=== PATIENT | male | born 1975 | race Caucasian/White ===

== ENCOUNTER 2016-10-23 04:49 | Emergency (ER) | payer MEDICAID ==
[~2016-10-23] VITALS: Ht 188 cm; Wt 122.0 kg
[~2016-10-23 04:49] MED LIST: AMLO5TAB66 PO; ATEN50TA PO; BENZ1TAB7 PO; BUSP30TA8 PO; CLON1TAB4 PO; DULO30CA52 PO; HYDR-4072 PO; LORA10TA7 PO; OMEP20CA10 PO; PRAV40TA3 PO; QUET400T3 PO; TRAM50TA4 PO
--- NOTE | 2016-10-23 04:51 | NUR ---
PROVIDER DR RIVER IN ROOM W/ PT.
--- OUTSIDE RECORDS SUMMARY | 2016-10-23 04:54 | XMS REPORT ---
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 056985578 Problem Hypertension, benign 401.1 Active 34375170 Problem Other chronic pain 338.29 Active 58897544 Problem Post-traumatic stress disorder, chronic F43.12 Active 93122323 Problem Memory loss 780.93 Active 38264645 Problem Hypercholesterolemia 272.2 Active 47420891 ALLERGIES Unknown Allergies SOCIAL HISTORY No smoking Hx information available PLAN OF CARE VITAL SIGNS MEDICATIONS Medication Instructions Dosage Frequency Start Date End Date Duration Status Rozerem 8 MG Orally Once a day 1 tablet at bedtime as needed 24h Jan, 30 days Active RESULTS No Results PROCEDURES No Known procedures IMMUNIZATIONS No Known Immunizations
--- OUTSIDE RECORDS SUMMARY | 2016-10-23 04:54 | XMS REPORT ---
Author Author [facility] Organization Unknown Address Unknown Phone Unavailable Care Team Providers Care Aviation Maintenance Technician Name Role Phone UNASSIGNED DOCTOR , DOCTOR PP [phone] Reason For Visit Reason for Visit from 10/02/2016 9:33 AM:* Pt Stated Reason for Adm : SI with plan to jump from water tower or bridge Reason for Visit from 09/30/2016 10:34 AM:* Pt Stated Reason for Adm : SI with plan to jump from water tower or bridge Reason for Visit from 09/29/2016 11:22 PM:* Pt Stated Reason for Adm : SI with plan to jump from water tower or bridge Chief Complaint UNSPEC DEPRESSION Social History Social History from 10/02/2016 9:33 AM:* Tobacco Use? : Current Everyday Smoker Social History from 09/30/2016 10:34 AM:* Tobacco Use? : Current Everyday Smoker Social History from 09/29/2016 11:22 PM:* Tobacco Use? : Current Everyday Smoker Functional Status Functional Status from 10/02/2016 8:24 AM:* LOC : Alert * Oriented To : Person,Place,Time,Event * Weight Bearing Status : Full * Assist Level : Independent * # Assists : Independent Functional Status from 10/01/2016 8:50 PM:* LOC : Alert * Oriented To : Person,Place,Time,Event * Weight Bearing Status : Full * Assist Level : Independent * # Assists : Independent Functional Status from 10/01/2016 12:00 PM:* LOC : Alert * Oriented To : Person,Place,Time,Event * Weight Bearing Status : Full * Assist Level : Independent * # Assists : Independent Functional Status from 09/30/2016 8:50 PM:* LOC : Alert * Oriented To : Person,Place,Time,Event * Weight Bearing Status : Full * Assist Level : Independent * # Assists : Independent Functional Status from 09/30/2016 11:46 AM:* LOC : Alert * Oriented To : Person,Place,Time,Event * Weight Bearing Status : Full * Assist Level : Independent * # Assists : Independent Functional Status from 09/29/2016 11:22 PM:* LOC : Alert * Oriented To : Person,Place,Time,Event * Weight Bearing Status : Full * Assist Level : Independent * # Assists : Independent Vital Signs Hospital Vital Signs from 10/02/2016 6:18 AM:* Height : 6/2 ft,in * Temperature : 97.4 F * Pulse : 88 * Respirations : 18 * BP : 106/69 Hospital Vital Signs from 10/01/2016 6:20 AM:* Weight : 123.4/ kg * Height : 6/2 ft,in * Temperature : 97.7 F * Pulse : 123 * Respirations : 20 * BP : 149/90 Hospital Vital Signs from 09/30/2016 10:11 AM:* Height : 6/2 ft,in * Temperature : 97.8 F * Pulse : 102 * Respirations : 18 * BP : 140/100 Hospital Vital Signs from 09/30/2016 9:23 AM:* Height : 6/2 ft,in Hospital Vital Signs from 09/30/2016 6:18 AM:* Height : 6/2 ft,in * Temperature : 99.6 F * Pulse : 96 * Respirations : 18 * BP : 125/78 Hospital Vital Signs from 09/29/2016 11:22 PM:* Weight : 122.1/ kg * Height : 6/2 ft,in Hospital Vital Signs from 09/29/2016 8:14 PM:* Weight : 122.1/ kg * Height : 6/2 ft,in * Temperature : 97.3 F * Pulse : 115 * Respirations : 18 * BP : 136/101 Results Chemistry from 09/30/2016 6:25 AMGLUCOSE (FASTING) 94 MG/DL (65-99 MG/DL) CHOLESTEROL 219 MG/DL H (50-199 MG/DL) TRIGLYCERIDES 316 MG/DL H (0-149 MG/DL) HDL CHOLESTEROL 42 MG/DL (40-60 MG/DL) *LDL (CALCULATED) CHOL 114 MG/DL H (0-99 MG/DL) Chemistry from 09/29/2016 8:53 PM*COCAINE NEGATIVE (NEG <150 ) *PCP NEGATIVE (NEG <25 ) *CANNABINOIDS NEGATIVE (NEG <50 ) *BENZODIAZEINE NEGATIVE (NEG <200 ) *METHAMPHETAMINE/AMPHETAMINE NEGATIVE (NEG <500 ) *BARBITURATES NEGATIVE (NEG <200 ) *OPIATES NEGATIVE (NEG <300 ) Chemistry from 09/29/2016 8:15 PMSODIUM 140 MMOL/L (136-145 MMOL/L) POTASSIUM 3.9 MMOL/L (3.5-5.1 MMOL/L) CHLORIDE 104 MMOL/L (98-107 MMOL/L) TCO2 28.8 MMOL/L (21.0-32.0 MMOL/L) *ANION GAP 7.2 MMOL/L L (8.0-16.0 MMOL/L) BUN 11 MG/DL (7-18 MG/DL) CREATININE 1.06 MG/DL (0.70-1.30 MG/DL) *BUN/CREATININE RATIO 10.4 (9.1-17.0 ) GLUCOSE 127 MG/DL H (65-99 MG/DL) *GFR EST NON AFR [place] 87 ML/MIN (Reference Range: not available) *GFR EST AFR AMER >90 ML/MIN (Reference Range: not available) CALCIUM 8.8 MG/DL (8.5-10.1 MG/DL) BILIRUBIN TOTAL 0.50 MG/DL (0.20-1.00 MG/DL) TOTAL PROTEIN 7.5 GM/DL (6.4-8.2 GM/DL) ALBUMIN 3.9 GM/DL (3.4-5.0 GM/DL) *GLOBULIN 3.6 GM/DL H (2.3-3.5 GM/DL) *A/G RATIO 1.1 MG/DL L (1.5-2.2 MG/DL) ALK PHOS 107 U/L (46-116 U/L) ALT (SGPT) 39 U/L (14-59 U/L) AST (SGOT) 34 U/L (15-37 U/L) TSH 1.282 UIU/ML (0.340-4.820 UIU/ML) Hematology from 09/29/2016 8:15 PMWBC 8.2 X10e3/UL (3.6-11.2 X10e3/UL) RBC 5.20 X10e6/UL (4.06-5.63 X10e6/UL) HEMOGLOBIN 14.5 G/DL (12.5-16.3 G/DL) HEMATOCRIT 43.9 % (36.7-47.1 %) *MCV 84.4 FL (80.0-100.0 FL) *MCH 27.9 PG (27.0-33.0 PG) *MCHC 33.0 G/DL (32.0-36.0 G/DL) *RDW 13.5 % (12.3-17.0 %) *RDWSD 40.3 (37.1-47.8 ) PLATELET 173 X10e3/UL (159-386 X10e3/UL) *MPV 9.9 FL (7.4-10.4 FL) Urinalysis from 09/29/2016 8:53 PM*URINE COLOR YELLOW (STRAW/YELL/DK YELL ) *URINE APPEARANCE CLEAR (CLEAR ) URINE PH 5.5 (5.0-8.0 ) URINE SPECIFIC GRAVITY 1.015 (<=1.005->=1.030 ) *URINE GLUCOSE NEGATIVE MG/DL (NEGATIVE MG/DL) *URINE BILIRUBIN NEGATIVE (NEGATIVE ) *URINE KETONES NEGATIVE MG/DL (NEGATIVE MG/DL) *URINE BLOOD NEGATIVE (NEGATIVE ) *URINE PROTEIN NEGATIVE MG/DL (NEGATIVE MG/DL) *URINE UROBILINOGEN 0.2 EU/DL (0.2-1.0 EU/DL) *URINE NITRITES NEGATIVE (NEGATIVE ) *URINE LEUKOCYTES NEGATIVE (NEGATIVE ) Problems Encounter Diagnosis * Chronic Pain Status:Active. * Mood Disorder Status:Active. Encounters Encounter Diagnosis * Chronic Pain Status:Active. * Mood Disorder Status:Active. Plan of Care Follow-up Appointments from 10/02/2016 9:33 AM:* #1 Office appointment: : Davida Shell * #1 Date/Time : 10/06/2016 10:00 AM * Address [address] : [address] [phone] Follow-up Appointments from 10/02/2016 9:30 AM:* #1 Office appointment: : Davida Shell * #1 Date/Time : 10/06/2016 10:00 AM * Address [address] : [address] [phone] Follow-up Appointments from 10/02/2016 9:02 AM:* #1 Office appointment: : Davida Shell * #1 Date/Time : 10/06/2016 10:00 AM * Address # [address] : [address] [phone] Procedures No relevant procedures performed. Immunizations No immunizations administered or ordered. Hospital Course Hospital Discharge Instructions How to care for yourself at home from 10/02/2016 9:33 AM:* Discharge Activity : Activity as tolerated,May Shower * Discharge Diet : As before hospitalization,Diet as tolerated * Call your doctor if: : Fever over 101 F or severe chills,Chest pain or other unexplained symptoms,Tingling or numbness develops,A sudden increase or decrease in weight,You have persistent or worsening symptoms,If you have Heart Failure and you gain 3 pounds within 1 week or your symptoms worsen. (Weigh at home tomorrow morning) Allergies, Adverse Reactions, Alerts This section is medical office representative of the current allergy information, at the time of the CCD generation. In the case of regeneration of the CCD, the allergy information may not reflect the state of known allergies at the time of the CCD' s subject visit. * Neurontin causes Vomiting. * No Latex Allergy. * No IV Contrast Allergy. * No Known Food Allergies. Medication It is the responsibility of the patient or patient medical office representative to confirm the list of medications with either the patient's personal care provider or the patient's follow-up care provider to ensure the patient has an appropriate list of medications to take at home. Discharge medications New medications* gabapentin (NEUROntin) 300 mg Capsule, Ordered By: NITIN PERDOMO, RUPA Directions: 1 capsule oral three times a day for pain * nicotine (polacrilex) (Nicorelief) 2 mg Gum, Ordered By: NITIN PERDOMO, PAC Directions: 1 gum oral daily for SMOKING CESSATION Additional Instructions: DO NOT GIVE IF PATIENT UNDER AGE 18 OR . Changed medications* busPIRone 30 mg Tablet, Ordered By: RUPA NICHOLS Directions: 1 tablet oral twice a day for anxiety * clonazePAM 0.5 mg Tablet, Ordered By: RUPA NICHOLS Directions: 1 tablet oral twice a day for anxiety Additional Instructions: #30 NR written * DULoxetine (Cymbalta) 30 mg capsule,delayed release(DR/EC), Ordered By: NITIN PERDOMO, PAC Directions: 3 capsule oral daily for depression * ibuprofen 400 mg Tablet, Ordered By: NITIN PERDOMO, PAC Directions: 1 tablet oral three times a day PRN pain * omeprazole 20 mg capsule,delayed release(DR/EC), Ordered By: NITIN PERDOMO , PAC Directions: 1 capsule oral twice a day before meals for dyspepsia * pravastatin 40 mg Tablet, Ordered By: RUPA NICHOLS Directions: 1 tablet oral daily at bedtime for hyperlipidemia * QUEtiapine (SEROquel XR) 400 mg Tablet Extended Release 24 hr, Ordered By: RUPA NICHOLS Directions: 1 tablet oral daily before dinner for mood stabilization * traMADol 50 mg Tablet, Ordered By: RUPA NICHOLS Directions: 2 tablet oral three times a day for pain Stopped medications* HYDROcodone-acetaminophen ([place]) 7.5 mg-325 mg Tablet Directions: 1 tablet oral three times a day PRN pain * benztropine 1 mg Tablet Directions: 1 tablet oral twice a day
[2016-10-23 04:55] VITALS: TEMP 97.6; Ht 188 cm; Wt 122.0 kg
--- OUTSIDE RECORDS SUMMARY | 2016-10-23 04:55 | XMS REPORT | Continuity of Care Document ---
Author Author [facility] Organization [facility] Address Unknown Phone Unavailable Allergies Active Description Code Type Severity Reaction Onset Reported/Identified Relationship to Patient Clinical Status Yes No Known Allergies NKMA N/A N/A 05/29/2015 Medications Problems Date Dx Coded Attending Type Code Diagnosis Diagnosed By 06/04/2015 Clyde KUHN, Son Final F17.210 Nicotine dependence, cigarettes, uncomplicated 06/04/2015 Clyde KUHN, Son Final J18.9 Pneumonia, unspecified organism 06/04/2015 Clyde KUHN, Son Final J84.10 Pulmonary fibrosis, unspecified 06/04/2015 Clyde KUHN, Son Final J98.4 Other disorders of lung 06/04/2015 Clyde KUHN, Son Final R05 Cough 06/04/2015 Clyde KUHN, Son Reason R06.00 Dyspnea, unspecified 08/10/2015 Clyde KUHN, Son Reason R06.00 Dyspnea, unspecified 05/13/2016 SAMRA DALY D B02.9 Zoster without complications Procedures Code [place] [address] Bronchoscopy, rigid or flexible, including fluoroscopic guidance, when perf 05/29/2015 37407 OFFICE/OUTPATIENT VISIT SAMRA WARD 05/13/2016 Results Encounters ACCT No. Visit Date/Time Discharge Status Pt. Type Provider Facility Loc./Unit Complaint [id number] 03/28/2015 10:28:00 03/28/2015 23 :59:59 [facility] Outpatient
--- OUTSIDE RECORDS SUMMARY | 2016-10-23 04:56 | XMS REPORT ---
Author Author [facility] Organization Unknown Address Unknown Phone Unavailable Care Team Providers Care Drip Pumper Name Role Phone UNASSIGNED DOCTOR , DOCTOR PP [phone] Reason For Visit Reason for Visit from [...] H (65-99 MG/DL) *GFR EST NON AFR [place] 87 ML/MIN (Reference Range: not available) *GFR [...] * Address # [address] : [address] [phone] Follow-up Appointments from 10/02/2016 9:30 AM:* #1 Office appointment: : Davida Shell * #1 Date/Time : 10/06/2016 10:00 AM * Address [address] : [address] [phone] Follow-up Appointments from 10/02/2016 9:02 AM:* #1 Office appointment: : Davida Shell * #1 Date/Time : 10/06/2016 10:00 AM * Address [address] : [address] [phone] Procedures No relevant procedures performed. Immunizations No [...] Allergies, Adverse Reactions, Alerts This section is escrow representative of the current allergy information, at [...] the responsibility of the patient or patient escrow representative to confirm the list of medications [...] 20 mg capsule,delayed release(DR/EC), Ordered By: NITIN K LEANNE , PAC Directions: 1 capsule oral twice [...] a day for pain Stopped medications* HYDROcodone-acetaminophen ([place]) 7.5 mg-325 mg Tablet Directions: 1 tablet oral three times a day PRN pain * benztropine 1 mg Tablet Directions: 1 tablet oral twice a day
--- OUTSIDE RECORDS SUMMARY | 2016-10-23 04:56 | XMS REPORT | Continuity of Care Document ---
Author Author [facility] Organization [facility] Address Unknown Phone Unavailable Care Team Providers Care Greeter Guest Services Name Role Phone GASTON GARCIA MD Primary Care Physician [phone] Insurance Providers Guarantor Caio Ma Address [address] [place] [address] Email DENIED/NO TO PT PORT Payer [facility] Policy Number [id number] Subscriber's Name FrancescaCaio Gilbert Relationship 18 Self Effective Date 16 Expiration Date 16 Advance Directives Directive Response Recorded Date/Time Advanced Directives Type None 06/17/16 4:30pm Chief Complaint and Reason for Visit Chief Complaint Chest Pain Reason for Visit Tachycardia Chest pain Problems Active Problems Medical Problem Onset Date Status Acute encephalopathy Unknown Resolved Acute respiratory failure with hypoxia Unknown Acute Bipolar 1 disorder Unknown Chronic Chronic pain Unknown Chronic pain due to trauma Unknown Acute Community acquired pneumonia Unknown Acute Dementia Unknown Chronic Depression with anxiety Unknown Chronic Erectile dysfunction Unknown Acute GERD (gastroesophageal reflux disease) Unknown Chronic H/O multiple trauma Unknown Chronic Healthcare-associated pneumonia Unknown Acute Hyperlipidemia Unknown Chronic Hypertension Unknown Chronic Hypoxia Unknown Acute Insomnia Unknown Acute Left against medical advice Unknown Acute Left lower lobe pneumonia Unknown Acute Obesity (BMI 30-39.9) Unknown Chronic Pneumonitis, aspiration Unknown Acute Polypharmacy Unknown Chronic RLS (restless legs syndrome) Unknown Chronic Respiratory insufficiency Unknown Acute Respiratory insufficiency Unknown Acute Right lower lobe pneumonia Unknown Acute Sepsis Unknown Acute Sepsis Unknown Acute Sepsis Unknown Acute Severe hypotension Unknown Resolved Severe sepsis Unknown Acute Shortness of breath Unknown Acute Viral syndrome Unknown Acute Vomiting Unknown Acute Past Problems Medical Problem Onset Date Alcohol intoxication Unknown Altered mental status Unknown Anxiety attack Unknown Back pain Unknown Bronchitis Unknown Cellulitis of right hand Unknown Chest pain Unknown Frontal sinusitis Unknown Muscle tension headache Unknown Polypharmacy Unknown Sleep apnea in adult Unknown Tachycardia Unknown Medications Current Home Medications Medication Dose Units Route Directions Days Qty Instructions Start Date Amlodipine Besylate (Norvasc) 5 Mg Tablet 5 Mg Oral Daily Atenolol 50 Mg Tablet 50 Mg Oral Daily 10/16/14 Benztropine Mesylate 1 Mg Tablet 2 Mg Oral Bedtime 01/15/15 Buspirone Hcl (Buspar) 30 Mg Tablet 30 Mg Oral Twice A Day Clonazepam 1 Mg Tablet 1 Mg Oral Twice A Day as needed for Prn Orders 10/16/14 Duloxetine Hcl 30 Mg Capsule.dr 90 Mg Oral Daily 05/05/16 Hydrocodone/Acetaminophen (Hydrocodon-Acetaminoph 7.5-325) 7.5-325 Tablet 1 Tab Oral Three Times A Day 06/17/16 Loratadine 10 Mg Tablet 10 Mg Oral Daily 03/17/15 Omeprazole 20 Mg Capsule.dr 20 Mg Oral Twice A Day 10/16/14 Pravastatin Sodium 40 Mg Tablet 40 Mg Oral Bedtime 10/16/14 Quetiapine Fumarate (Seroquel Xr) 400 Mg Tab.er.24h 800 Mg Oral Bedtime 01/15/15 Tramadol Hcl 50 Mg Tablet 100 Mg Oral Three Times A Day 11/21/15 Past Home Medications Medication Directions Ordered Status Albuterol Sulfate (Ventolin Hfa 90 Mcg/Actuation) 18 Gm Hfa.aer.ad, 2 Puff Inhalation Every 4 Hours as needed for Cough 01/18/15 Discontinued Amoxicillin/Potassium Clav (Augmentin 875-125 Tablet) 1 Each Tablet, 1 Tab Oral Twice A Day 08/05/15 Discontinued Benzonatate 100 Mg Capsule, 100 Mg Oral Every 4 Hours as needed for Cough Discontinued Ciprofloxacin Hcl 500 Mg Tablet, 1 Tab Oral Every 12 Hours 01/31/15 Discontinued Doxycycline Monohydrate 100 Mg Capsule, 1 Cap Oral Twice Daily With Meals 06/05 Discontinued Duloxetine Hcl 30 Mg Capsule.dr, 3 Tab Oral Daily 10/16/14 Discontinued Guaifenesin (Mucinex) 600 Mg Tablet, 600 Mg Oral Every 12 Hours 01/18/15 Discontinued Hydrocodone/Acetaminophen (Hydrocodon-Acetaminophen 5-325) 1 Each Tablet, 1 Tab Oral Four Times Daily 10/16/14 Discontinued Levofloxacin (Levaquin) 750 Mg Tablet, 1 Tab Oral Daily 01/18/15 Discontinued Ondansetron (Zofran Odt) 4 Mg Tab.rapdis, 4 Mg Oral Q6h/0300,0900,1500,2100 as needed for Nausea 10/16/14 Discontinued Prednisone 20 Mg Tablet, 20 Mg Oral Give With Breakfast 01/31/15 Discontinued Quetiapine Fumarate (Seroquel Xr) 300 Mg Tablet, 1 Tab Oral Daily 10/16/14 Discontinued Ramelteon (Rozerem) 8 Mg Tablet, 1 Tab Oral Bedtime 10/16/14 Discontinued Zolpidem Tartrate (Ambien) 10 Mg Tablet, 10 Mg Oral Bedtime 01/15/15 Discontinued Social History Social History Problem Response Recorded Date/Time Onset Date Status Hx Substance Use No 06/17/2016 4:54pm Not Applicable Not Applicable Hx Alcohol Use Y WEEKLY; BEER 06/17/2016 4:54pm Not Applicable Not Applicable Has the pt used tobacco in the last 12 months No 10/11/2015 8:55am Not Applicable Not Applicable Tobacco Usage smoke 01/20/2015 1:41pm Not Applicable Not Applicable Query Response Start Date Stop Date Smoking Status Current every day smoker Hospital Discharge Instructions No hospital discharge instructions. Plan of Care Discharge Date 06/17/16 6:10pm Disposition 01 DISCHARGED HOME, SELF-CARE Condition at Discharge Improved Instructions/Education Provided Tachycardia Prescriptions See Medication Section Referrals GASTON GARCIA MD Address: [address] [place] [address] [place] [phone] HEMA CHURCH DO Address: [address] [place] [address] [place] [phone] Additional Instructions/Education Be sure to follow up with your primary care provider tomorrow morning. Please return to the ER if you have another episode of such rapid heartbeats. Functional Status No functional status results. Allergies, Adverse Reactions, Alerts Allergen Type Severity Reaction Status Last Updated No Known Drug Allergies Allergy Unknown Active 05/10/16 Immunizations Query Response on File Recorded Date/Time Hx Influenza Vaccination No 10/11/15 8:55am Hx Pneumococcal Vaccination No 10/11/15 8:55am Hx Tetanus, Diptheria, Pertussis NO OPEN AREAS 01/20/15 9:52am Hx Influenza Vaccination No 10/11/15 8:55am Hx Tetanus, Diptheria, Pertussis NO OPEN AREAS 01/20/15 9:52am Influenza Vaccine Hx NOT REC'D 06/17/16 4:54pm Vital Signs Acute Vital Signs Vital Response Date/Time Temperature (Fahrenheit) 98.7 deg F (96.8 - 99.1) 06/17/2016 6:10pm Temperature (Calculated Celsius) 37.87996 degrees C (36.0 - 37.3) 06/17/2016 6:10pm Pulse Rate (adult) 110 bpm (60 - 100) 06/17/2016 6:10pm Respiratory Rate 19 breaths/min (10 - 20) 06/17/2016 6:10pm O2 Sat by Pulse Oximetry 96 % (90 - 100) 06/17/2016 6:10pm Blood Pressure 134/81 mm Hg 06/17/2016 6:10pm Height (Feet) 6 feet 06/17/2016 4:43pm Height (Inches) 2.00 inches 06/17/2016 4:43pm Weight (Kilograms) 116.400 kg 06/17/2016 4:43pm Body Mass Index (BMI) 32.0 06/17/2016 4:43pm Results Laboratory Results Test Name Result Units Flags Reference Collection Date/Time Result Date/ Time Comments Plasma Lactate 1.5 MMOL/L 0.6-2.2 05/05/2016 2:53pm 05/05/2016 3:17pm Procalcitonin 0.21 NG/ML 05/05/2016 2:52pm 05/05/2016 3:34pm PCT </= 0.5 ng/mL - sepsis not likely; PCT >0.5 and </=2 ng/mL - sepsis possible; PCT >2 ng/mL - sepsis likely; PCT >/=10 ng/mL - systemic inflammatory response - sepsis or septic shock highly indicated. Urine Collection Type VOIDED-NOT CC-MIDSTR 05/10/2016 9:09am 2015 9:14am Urine Color YELLOW YELLOW 05/10/2016 9:09am 05/10/2016 9:14am Urine Turbidity CLEAR CLEAR 05/10/2016 9:09am 05/10/2016 9:14am Urine Specific Heth 1.015 1.015-1.025 05/10/2016 9:09am 2015 9:14am Urine pH 6.0 5.0-8.0 05/10/2016 9:09am 05/10/2016 9:14am Urine Leukocyte Esterase NEGATIVE NEGATIVE 05/10/2016 9:092015 9:14am Urine Nitrite NEGATIVE NEGATIVE 05/10/2016 9:0905/10/2016 9:14am Urine Protein NEGATIVE NEGATIVE 05/10/2016 9:0905/10/2016 9:14am Urine Glucose (UA) NEGATIVE NEGATIVE 05/10/2016 9:0905/10/2016 9: 14am Urine Ketones NEGATIVE NEGATIVE 05/10/2016 9:0905/10/2016 9:14am Urine Urobilinogen 0.2 EU/DL NORMAL 05/10/2016 9:0905/10/2016 9: 14am Urine Bilirubin NEGATIVE NEGATIVE 05/10/2016 9:0905/10/2016 9: 14am Urine Blood NEGATIVE NEGATIVE 05/10/2016 9:0905/10/2016 9:14am Urinalysis Comment MICROSCOPIC NOT IND. 05/10/2016 9:092015 9:14am White Blood Count 12.2 T/MM3 H 4.5-11.0 06/17/2016 4:50pm 06/17/2016 5: 11pm Red Blood Count 5.45 M/MM3 4.50-5.90 06/17/2016 4:50pm 06/17/2016 5: 11pm Hemoglobin 15.3 GM/DL 13.5-17.5 06/17/2016 4:50pm 06/17/2016 5:11pm Hematocrit 46.3 % 41-53 06/17/2016 4:50pm 06/17/2016 5:11pm Mean Corpuscular Volume 85.0 UM3 80-100 06/17/2016 4:50pm 06/17/2016 5: 11pm Mean Corpuscular Hemoglobin 28.1 UUG 26-34 06/17/2016 4:50pm 2015 5:11pm Mean Corpuscular Hemoglobin Concent 33.0 GM/DL 31-37 06/17/2016 4:50pm 06/17/2016 5:11pm RDW Standard Deviation 45.5 FL 36.9-50.2 06/17/2016 4:50pm 06/17/2016 5 :11pm Platelet Count 271 T/MM3 130-400 06/17/2016 4:50pm 06/17/2016 5:11pm Mean Platelet Volume 11.5 UM3 9.4-12.4 06/17/2016 4:50pm 06/17/2016 5: 11pm Neutrophils (%) (Auto) 64.1 % 33-66 06/17/2016 4:50pm 06/17/2016 5: 11pm Lymphocytes (%) (Auto) 23.6 % 23-45 06/17/2016 4:50pm 06/17/2016 5: 11pm Monocytes (%) (Auto) 8.0 % 0-9.0 06/17/2016 4:50pm 06/17/2016 5:11pm Eosinophils (%) (Auto) 3.7 % 0-4 06/17/2016 4:50pm 06/17/2016 5:11pm Basophils (%) (Auto) 0.4 % 0-2 06/17/2016 4:50pm 06/17/2016 5:11pm Immature Granulocyte % (Auto) 0.2 % 0.0-0.5 06/17/2016 4:50pm 2015 5:11pm Absolute Neutrophils (auto) 7.8 T/MM3 H 1.8-7.7 06/17/2016 4:50pm 2015 5:11pm Absolute Lymphocytes (auto) 2.9 T/MM3 1-4.8 06/17/2016 4:50pm 2015 5:11pm Absolute Monocytes (auto) 1.0 T/MM3 H 0-0.8 06/17/2016 4:50pm 2015 5:11pm Absolute Eosinophils (auto) 0.5 T/MM3 0-0.5 06/17/2016 4:50pm 2015 5:11pm Absolute Basophils (auto) 0.1 T/MM3 0-0.2 06/17/2016 4:50pm 06/17/2016 5:11pm Absolute Immature Granulocyte (auto 0.02 T/MM3 0.00-0.03 06/17/2016 4: 50pm 06/17/2016 5:11pm Prothromb Time International Ratio 0.99 0.76-1.04 06/17/2016 4:50pm 06/17/2016 5:12pm THERAPUTIC RANGE=2.00-3.00 FOR ANTI-THROMBOSIS THERAPUTIC RANGE=2.50-3.50 FOR IMPLANTED VALVE Icterus Index < 2 0-7 06/17/2016 4:50pm 06/17/2016 5:18pm Chemistry Specimen Hemolysis < 15 0-25 06/17/2016 4:50pm 06/17/2016 5 :18pm 0-25: Specimen Exhibited No Hemolysis. Turbidity < 20 0-20 06/17/2016 4:50pm 06/17/2016 5:18pm Sodium Level 142 MEQ/L 134-144 06/17/2016 4:50pm 06/17/2016 5:18pm Potassium Level 4.3 MEQ/L 3.6-5 06/17/2016 4:50pm 06/17/2016 5:18pm Chloride Level 105 MEQ/L 98-107 06/17/2016 4:50pm 06/17/2016 5:18pm Carbon Dioxide Level 23 MEQ/L 22-30 06/17/2016 4:50pm 06/17/2016 5: 18pm Anion Gap 14 MEQ/L 5-15 06/17/2016 4:50pm 06/17/2016 5:18pm Blood Urea Nitrogen 14.0 MG/DL 9-06/17/2016 4:50pm 06/17/2016 5: 18pm Creatinine 0.9 MG/DL 0.8-1.5 06/17/2016 4:50pm 06/17/2016 5:18pm BUN/Creatinine Ratio 16 RATIO 6-06/17/2016 4:50pm 06/17/2016 5:18pm Glomerular Filtration Rate Calc 93 06/17/2016 4:50pm 06/17/2016 5: 18pm Glucose Level 112 MG/DL H 75-110 06/17/2016 4:50pm 06/17/2016 5:18pm Calculated Osmolality 275 MOSM/KG 261-280 06/17/2016 4:50pm 06/17/2016 5:18pm Calcium Level 9.8 MG/DL 8.4-10.2 06/17/2016 4:50pm 06/17/2016 5:18pm Total Bilirubin 0.50 MG/DL 0.20-1.30 06/17/2016 4:50pm 06/17/2016 5: 18pm Alkaline Phosphatase 98 U/L 38-126 06/17/2016 4:50pm 06/17/2016 5:18pm Total Protein 8.4 G/DL H 6.3-8.2 06/17/2016 4:50pm 06/17/2016 5:18pm Albumin 4.9 G/DL 3.5-5.0 06/17/2016 4:50pm 06/17/2016 5:18pm Globulin 3.5 G/DL 2.4-3.6 06/17/2016 4:50pm 06/17/2016 5:18pm Albumin/Globulin Ratio 1.4 RATIO 1.1-2.2 06/17/2016 4:50pm 06/17/2016 5 :18pm Aspartate Amino Transf (AST/SGOT) 32 U/L 17-59 06/17/2016 4:50pm 2015 5:18pm Alanine Aminotransferase (ALT/SGPT) 42 U/L 21-72 06/17/2016 4:50pm 5:18pm Troponin I < 0.012 ng/ml 0-0.12 06/17/2016 4:50pm 06/17/2016 5:29pm Troponin values with a difference of 55% increase from orginal troponin value represent a true biological DELTA value. (%increase Calc=Orginal Troponin value, divided by subsequent Troponin value, multiplied by 100) [id number]-Type Natriuretic Peptide 17 PG/ML 0-175 06/17/2016 4:50pm 5:29pm Rule in cut points: <50 years old=450; 50-75 years old=900; >75 years old=1800; When utilizing ProBNP rule-in cut points, adjustment for impaired renal function is typically not required. Thyroid Stimulating Hormone (TSH) 0.80 MIU/L 0.47-4.68 06/17/2016 4: 50pm 06/17/2016 5:48pm Procedures Procedure Status Date Provider(s) CHEST X-RAY 2VW FRONTAL&LATL Completed 03/19/16 THER/PROPH/DIAG INJ SC/IM Completed 03/19/16 THER/PROPH/DIAG INJ SC/IM Completed 03/19/16 EMERGENCY DEPT VISIT Completed 03/19/16 002157"INJECTION, CEFTRIAXONE SODIUM, PER 250 MG" Completed 03/19/16 649905"INJECTION, HYDROMORPHONE, UP TO 4 MG" Completed 03/19/16 595192"INJECTION, KETOROLAC TROMETHAMINE, PER 15 MG" Completed 03/19/16 PREDNISONE, 10 MG TAB Completed 03/19/16"AZITHROMYCIN DIHYDRATE, ORAL, CAPSULES/POWDER, 1 GRAM Completed ROUTINE VENIPUNCTURE Completed 05/05/16 METABOLIC PANEL TOTAL CA Completed 05/05/16 ASSAY OF LACTIC ACID Completed 05/05/16 PROCALCITONIN (PCT) Completed 05/05/16 COMPLETE CBC W/AUTO DIFF WBC Completed 05/05/16 EMERGENCY DEPT VISIT Completed 05/05/16 ROUTINE VENIPUNCTURE Completed 05/10/16 X-RAY EXAM OF ABDOMEN Completed 05/10/16 METABOLIC PANEL TOTAL CA Completed 05/10/16 URINALYSIS AUTO W/O SCOPE Completed 05/10/16 COMPLETE CBC W/AUTO DIFF WBC Completed 05/10/16 THER/PROPH/DIAG INJ SC/IM Completed 05/10/16 THER/PROPH/DIAG INJ SC/IM Completed 05/10/16 EMERGENCY DEPT VISIT Completed 05/10/16 178274"INJECTION, DEXAMETHASONE SODIUM PHOSPHATE, 1MG" Completed 05/10/16"INJECTION, KETOROLAC TROMETHAMINE, PER 15 MG" Completed 05/10/16 Encounters Encounter Location Arrival/Admit Date Discharge/Depart Date Attending Provider Departed Emergency Room [facility] 06/17/16 4:26pm 06/17/16 6: 10pm ZOEY COHEN MD Departed Emergency Room [facility] 05/10/16 8:28am 05/10/16 11: 12am ZOEY COHEN MD Departed Emergency Room [facility] 05/05/16 1:55pm 05/05/16 4: 12pm ZOEY COHEN MD Departed Emergency Room [facility] 03/19/16 4:49pm 03/19/16 8: 35pm HEMA RIVER MD Recent Diagnosis
--- OUTSIDE RECORDS SUMMARY | 2016-10-23 04:57 | XMS REPORT | Continuity of Care Document ---
Author Author [facility] Organization [facility] Address [address] [place] [address] ;ext= Care Team Providers Care Group Billing Coordinator Name Role Phone Monico NORTON Admitting Physician Unavailable Monico NORTON Attending Physician Unavailable Hospital Admission Diagnosis * No data in the System Social History Element Description Code Description Smoking Status Code System Start Date End Date Smoking Status 718155094 Current every day smoker SNOMED-CT Problems Code Code System Problem Name Start Date End Date Status 81541355 SNOMED-CT Depressive disorder Unknown Active 634906771 SNOMED-CT Bipolar I disorder Unknown Active 00308106 SNOMED-CT Posttraumatic stress disorder Unknown Active 91068461 SNOMED-CT Dementia Unknown Active Medications RxNorm Medication Dose Route Instructions Indications Start Date End Date Status 19721120 Amlodipine 5 MG Oral Tablet 5 milligram Oral orally every day Active 19730120 Atenolol 50 MG Oral Tablet 50 milligram Oral orally once Active 184157 benztropine mesylate 1 MG Oral Tablet 1 milligram Oral orally 2 times per day Active Ibuprofen 400 MG Oral Tablet 400 milligram Oral orally 3 times per day Active 01324 Loratadine 10 milligram Oral orally every day Active 7646 Omeprazole 20 milligram Oral orally 2 times per day (swallow whole; do not crush/chew/cut OR may open and sprinkle contents over spoonful of applesauce; swallow all immediately/do not chew pellets;) Active 692493 Pravastatin Sodium 40 MG Oral Tablet 40 milligram Oral orally every day at bedtime Active 43518 quetiapine 800 milligrams Oral orally every day at bedtime Active 868168 tramadol hydrochloride 50 MG Oral Tablet 100 milligram Oral orally every 8 hours Active 167928 tramadol hydrochloride 50 MG Oral Tablet 100 milligram Oral orally tid Active Allergies Code Code System Allergy Substance Type Reaction Severity Start Date End Date Status 340399 RXNorm Neurontin Drug allergy bad dreams Unknown 09/27/2016 Active Results * No data in the system Vital Signs Vitals Value Date Body Temperature 97.3 F 09/27/2016 Respiratory Rate 16 09/27/2016 O2% BldC Oximetry 92 09/27/2016 BP Systolic 143 mmHg 09/27/2016 BP Diastolic 77 mmHg 09/27/2016 Height 74 in 09/27/2016 Weight Measured 264 lbs 09/27/2016 BSA (Body Surface Area) 2.95440 09/27/2016 BMI (Body Mass Index) 34.2 09/27/2016 Plan of Care * No data in the system Procedures * No data in the system Encounters * No data in the system Immunizations * No data in the system Functional Status * No data in the system Hospital Discharge Instructions * No data in the system
[2016-10-23] MEDS ORDERED: DEXAMETHASONE 4mg/ml - 1ml INJECTION IM ONE (05:00)
[2016-10-23] MEDS ORDERED: HYDROMORPHONE 2mg/ml INJECTION IM ONE (05:00)
[2016-10-23] MEDS ORDERED: KETOROLAC 60mg/2ml INJECTION IM ONE (05:00)
--- NOTE | 2016-10-23 05:08 | ERPDOC ---
Departure Disposition Decision Date: October 23, 2016 Disposition Decision Time: 05:07 Disposition: 01 DISCHARGED HOME, SELF-CARE Impression Impression Impression: Primary Impression: Peroneal tendinitis of right lower leg Severity: Moderate Condition: Improved Seen By: Physician only Referrals: HEMA CHURCH DO (Family) CRISTEL WEISS MD Patient Instructions: Tendinitis (ED) Problems/Meds/Labs Reviewed?: Yes Medications reviewed and manag: Yes Additional Instructions: Take ibuprofen 800 mg 3 times daily in addition to your routine pain medications Ice the affected area, keep it elevated as much as possible, but maintaining her normal walking and activities Call Dr. Church's office recheck sometime in the next 2-7 days If you're unable to be seen by Dr. Church, call Dr. Cristel Weiss office for sports medicine/orthopedic consultation Follow up care ordered?: Yes Mental Status: Alert HPI - Lower Extremity General Chief Complaint: Lower Extremity Pain Stated Complaint: RIGHT KNEE PAIN Time Seen by Provider: 04:51 Source: patient Exam Limitations: no limitations HPI - Lower Extremity Initial Comments Two days of lateral posterior right calf/ankle pain. No injury, no swelling or bruising. Occurred At: home Onset/Timing: Rapid Severity: moderate Pain/Injury Location: right ankle 1 - Can right posterior ankle pain/tenderness Method of Injury: unknown Quality: burning, sharpness Allergies: Coded Allergies: No Known Drug Allergies (Verified Allergy, Unknown, 05/10/16) Past History Patient Surgical History Lap Azul T/A Multiple ortho procedures due to trauma Past Medical History Hx Echocardiogram: No Respiratory: other, pneumonia GI: GERD Musculoskeletal: back pain, other Infectious: other Psychological: OD, anxiety, bipolar, depression, other Surgical History General: gallbladder, tonsils Joint: other Family History Family PMH: FOUND: cancer, hypertension Vaccines Hx Influenza Vaccination: No Hx Pneumococcal Vaccination: No Social History Smoking Status: Current every day smoker Does patient use chewing tobac: No Second Hand Exposure: Yes Substance Use Type: does not use Alcohol Intake: occasionally Sexuality: female partner Review of Systems Constitutional Constitutional: DENIES: appetite decrease, appetite increase, chills, dizziness , fever, weakness ENMT Ears: DENIES: pain Hearing: DENIES: hearing loss, tinnitus Balance: DENIES: vertigo Mouth/Throat: DENIES: change in swallowing, change in voice, hoarsness, painful swallowing, sore throat Cardiovascular Cardiac: DENIES: chest pain, dyspnea on exertion Rhythm/Rate: DENIES: irregular beat, palpitations, tachycardia Vascular: DENIES: pedal edema Pulmonary Respiratory: DENIES: cough, dyspnea, pleuritic chest pain GI Upper Abdomen: DENIES: dysphagia, heartburn/indigestion, nausea, pain, vomiting Lower Abdomen: DENIES: blood in stool, constipation, diarrhea, pain General: DENIES: burning, dysuria, frequency, pain, urgency Musculoskeletal General: pain, tenderness, DENIES: atrophy of muscles, cramps, joint pain, joint swelling, weakness Integumentary Skin: DENIES: rash, sores Neurological General: DENIES: headache, numbness, tingling, vertigo, weakness Psychiatric Psychiatric: DENIES: anxiety, depression, nervousness Physical Exam General General Nourishment: well nourished, well developed, appears stated age, no acute distress General Body Habitus: well groomed Vitals and Pain Weight: Kilograms: Height (feet): 6 Height (inches): 2.00 Triage Pain Scale: RN VS reviewed by Provider: Yes Normal Exams: Head: Normocephalic w/o trauma Eyes: Pupils are PERRLA w/ EOMI, No scleral icterus, irritation, or foreign bodies noted ENMT: No facial trauma, nasal exudates, pharyngeal erythema, or exudates are noted Neck: Full range of motion, without adenopathy, JVD, bruits or thyromegaly Chest/Resp: Clear all cerda, with good airflow, and symmetry bilaterally CV: Regular rate and rhythm, without murmur or gallop, Pulses 2+ all extremities, capillary refill, <2 seconds all ext., no pedal edema noted Abdomen: Bowel sounds positive, soft, non-tender, non-distended, no hepatosplenomegaly, masses or bruits noted Lymphatic: No lymphadenopathy, or lymphedema noted Integumentary: No rashes, hives, or bruising noted, hair and nails, without abnormality Neurologic: Patient is alert, and oriented, cranial nerves, motor/sensory/ cerebellar, exams w/o gross deficits, to observation Psychiatric: Patient exhibits, appropriate attention, emotion and affect Progress Results/Orders Orders Procedure Category Date Status Time Ketorolac (Toradol) PHA 10/23/16 Complete 05:00 Dexamethasone Inj PHA 10/23/16 Complete (Decadron) 05:00 Hydromorphone PHA 10/23/16 Complete (Dilaudid) 05:00 Medications Current ED Medications Ketorolac Tromethamine (Toradol) 60 mg O ONCE IM ; Start 10/23/16 at 05:00; Stop 10/23/16 at 05:02; Status DC Dexamethasone Sodium Phosphate (Decadron) 8 mg O ONCE IM ; Start 10/23/16 at 05: 00; Stop 10/23/16 at 05:02; Status DC Hydromorphone HCl (Dilaudid) 1 mg O ONCE IM ; Start 10/23/16 at 05:00; Stop 10/23 at 05:02; Status DC Progress Progress Patient appears to have peroneal tendinitis Given dexamethasone 8 mg IM, Toradol 60 mg IM, and one dose of Dilaudid 1 mg IM HEMA RIVER MD October 23, 2016 05:08
--- OUTSIDE RECORDS SUMMARY | 2016-10-23 05:17 | XMS REPORT ---
Author Author [facility] Organization Unknown Address Unknown Phone Unavailable Care Team Providers Care Crew Supervisor Name Role Phone UNASSIGNED DOCTOR , DOCTOR PP [phone] Reason For Visit Reason for Visit from [...] H (65-99 MG/DL) *GFR EST NON AFR EMIRATI 87 ML/MIN (Reference Range: not available) *GFR [...] * Address # [address] : [address] [phone] Follow-up Appointments from 10/02/2016 9:30 AM:* #1 Office appointment: : Davida Shell * #1 Date/Time : 10/06/2016 10:00 AM * Address # [address] : [address] [phone] Follow-up Appointments from 10/02/2016 9:02 AM:* #1 Office appointment: : Davida Shell * #1 Date/Time : 10/06/2016 10:00 AM * Address # [address] : [address] [phone] Procedures No relevant procedures performed. Immunizations No [...] Allergies, Adverse Reactions, Alerts This section is delivery representative of the current allergy information, at [...] the responsibility of the patient or patient delivery representative to confirm the list of medications [...] a day for pain Stopped medications* HYDROcodone-acetaminophen ([facility]) 7.5 mg-325 mg Tablet Directions: 1 tablet oral three times a day PRN pain * benztropine 1 mg Tablet Directions: 1 tablet oral twice a day
--- OUTSIDE RECORDS SUMMARY | 2016-10-23 05:17 | XMS REPORT | Continuity of Care Document ---
Author Author [facility] Organization [facility] Address Unknown Phone Unavailable Allergies Active Description Code Type Severity Reaction Onset Reported/Identified Relationship to Patient Clinical Status Yes No Known Allergies NKMA N/A N/A 05/29/2015 Medications Problems Date Dx Coded Attending Type Code Diagnosis Diagnosed By 06/04/2015 Clyde KHUN, Son Final F17.210 Nicotine dependence, cigarettes, uncomplicated [...] Procedures Code [place] [address] Bronchoscopy, rigid or flexible, including fluoroscopic guidance, when perf 05/29/2015 71414 OFFICE/OUTPATIENT VISIT SAMRA WARD 05/13/2016 Results Encounters ACCT No. Visit Date/Time Discharge Status Pt. Type Provider Facility Loc./Unit Complaint [id number] 03/28/2015 10:28:00 03/28/2015 23 :59:59 CLS Outpatient
--- OUTSIDE RECORDS SUMMARY | 2016-10-23 05:18 | XMS REPORT ---
Author Author [facility] Organization Unknown Address Unknown Phone Unavailable Care Team Providers Care Communication Equipment Mechanic Name Role Phone UNASSIGNED DOCTOR , DOCTOR PP [phone] Reason For Visit Reason for Visit from [...] H (65-99 MG/DL) *GFR EST NON AFR [place] 87 ML/MIN (Reference Range: not available) *GFR [...] * Address # [address] : [place] [address] [phone] Follow-up Appointments from 10/02/2016 9:30 AM:* #1 Office appointment: : Davida Shell * #1 Date/Time : 10/06/2016 10:00 AM * Address # [address] : [place] [address] [phone] Follow-up Appointments from 10/02/2016 9:02 AM:* #1 Office appointment: : Davida Shell * #1 Date/Time : 10/06/2016 10:00 AM * Address # [address] : [place] [place] [phone] Procedures No relevant procedures performed. Immunizations No [...] Allergies, Adverse Reactions, Alerts This section is patient portal representative of the current allergy information, at [...] the responsibility of the patient or patient patient portal representative to confirm the list of medications [...] a day for pain Stopped medications* HYDROcodone-acetaminophen ([place]) 7.5 mg-325 mg Tablet Directions: 1 tablet oral three times a day PRN pain * benztropine 1 mg Tablet Directions: 1 tablet oral twice a day
[2016-10-23 05:52] VITALS: BP 122/56; PULSE 75; RESP 16; O2SAT 92
--- NOTE | 2016-10-23 05:52 | NUR ---
DISCHARGE PT GIVEN DISCHARGE INSTRUCTIONS FOR CONT CARE TENDONITIS, PT VERVBALIZED UNDERSTANDING OF CONTENT AND SIGNED FORM, PT LEFT ER AMBULATORY, ALERT, VS CHARTED IN NO ACUTE DISTRESS W/ CONDITION IMPROVED 0/10 PAIN.
== END 2016-10-23 05:52 | disposition home or self-care (01) ==
LOC: ED 04:49
DX: M76.71 Peroneal tendinitis, right leg (principal)
CPT/HCPCS: 96372; 99283; J1100; J1170; J1885

== ENCOUNTER 2016-10-23 17:53 | Emergency (ER) | payer MEDICAID ==
[~2016-10-23] VITALS: Ht 188 cm; Wt 122.0 kg
[2016-10-23 17:55] VITALS: Ht 188 cm; Wt 122.0 kg
--- OUTSIDE RECORDS SUMMARY | 2016-10-23 17:58 | XMS REPORT ---
Author Author [facility] Organization Unknown Address Unknown Phone Unavailable Care Team Providers Care Document Photographer Name Role Phone UNASSIGNED DOCTOR , DOCTOR PP [phone] Reason For Visit Reason for Visit from [...] H (65-99 MG/DL) *GFR EST NON AFR PRYDEINIG 87 ML/MIN (Reference Range: not available) *GFR [...] * Address # [address] : [place] [phone] Follow-up Appointments from 10/02/2016 9:30 AM:* #1 Office appointment: : Davida Shell * #1 Date/Time : 10/06/2016 10:00 AM * Address # [address] : [place] [phone] Follow-up Appointments from 10/02/2016 9:02 AM:* #1 Office appointment: : Davida Shell * #1 Date/Time : 10/06/2016 10:00 AM * Address # [address] : [place] [phone] Procedures No relevant procedures performed. Immunizations No [...] Allergies, Adverse Reactions, Alerts This section is livestock sales representative of the current allergy information, at [...] the responsibility of the patient or patient livestock sales representative to confirm the list of medications [...] a day for pain Stopped medications* HYDROcodone-acetaminophen ([place]) 7.5 mg-325 mg Tablet Directions: 1 tablet oral three times a day PRN pain * benztropine 1 mg Tablet Directions: 1 tablet oral twice a day
--- OUTSIDE RECORDS SUMMARY | 2016-10-23 17:59 | XMS REPORT ---
Author Author [facility] Organization Unknown Address Unknown Phone Unavailable Care Team Providers Care Receiving Weigher Name Role Phone UNASSIGNED DOCTOR , DOCTOR PP [phone] Reason For Visit Reason for Visit from [...] H (65-99 MG/DL) *GFR EST NON AFR [place]ELANDIC 87 ML/MIN (Reference Range: not available) *GFR [...] * Address # [address] : [place] [phone] Follow-up Appointments from 10/02/2016 9:30 AM:* #1 Office appointment: : Davida Shell * #1 Date/Time : 10/06/2016 10:00 AM * Address # [address] : [place] [phone] Follow-up Appointments from 10/02/2016 9:02 AM:* #1 Office appointment: : Davida Shell * #1 Date/Time : 10/06/2016 10:00 AM * Address # 1 : [place] [phone] Procedures No relevant procedures performed. Immunizations No [...] Allergies, Adverse Reactions, Alerts This section is printing supplies sales representative of the current allergy information, [...] the responsibility of the patient or patient printing supplies sales representative to confirm the list of [...] a day for pain Stopped medications* HYDROcodone-acetaminophen ([place]) 7.5 mg-325 mg Tablet Directions: 1 tablet oral three times a day PRN pain * benztropine 1 mg Tablet Directions: 1 tablet oral twice a day
--- OUTSIDE RECORDS SUMMARY | 2016-10-23 17:59 | XMS REPORT | Continuity of Care Document ---
[...] Procedures Code [place] [address] Bronchoscopy, rigid or flexible, including fluoroscopic guidance, when perf 05/29/2015 39496 OFFICE/OUTPATIENT VISIT SAMRA WARD 05/13/2016 Results Encounters ACCT No. Visit Date/Time Discharge Status Pt. Type Provider Facility Loc./Unit Complaint [id number] 03/28/2015 10:28:00 03/28/2015 23 :59:59 CLS Outpatient
--- OUTSIDE RECORDS SUMMARY | 2016-10-23 18:00 | XMS REPORT | Continuity of Care Document ---
Author Author [facility] Organization [facility] Address Unknown Phone Unavailable Care Team Providers Care Offset Press Assistant Name Role Phone GASTON GARCIA MD Primary Care Physician [phone] Insurance Providers Guarantor Caio Ma Address [address] [place] [address] Email DENIED/NO TO PT PORT Payer [facility] Policy Number [id number] Subscriber's Name Caio Ma Relationship 18 Self Effective Date 16 Expiration Date 16 Advance Directives Directive Response Recorded Date/Time Advanced Directives Type None 10/23/16 4:55am Chief Complaint and Reason for Visit Chief Complaint Lower Extremity Pain Reason for Visit Peroneal tendinitis of right lower leg Problems Active Problems Medical Problem Onset Date [...] Frontal sinusitis Unknown Muscle tension headache Unknown Peroneal tendinitis of right lower leg Unknown Polypharmacy Unknown Sleep apnea in adult [...] 20 Mg Oral Twice A Day 10/16/14 Quetiapine Fumarate (Seroquel Xr) 400 Mg Tab.er.24h 800 Mg Oral Bedtime 01/15/15 Tramadol Hcl 50 Mg Tablet 100 Mg Oral Three Times A Day 11/21/15 Past Home Medications Medication Directions Ordered Status Acetaminophen/Hydrocodone Bitart ([place] 5-325 Tablet) 1 Each Tablet, 1 Tab Oral Four Times Daily 10/16/14 Discontinued Albuterol Sulfate (Ventolin Hfa 90 Mcg/Actuation) 18 [...] Mg Oral Every 12 Hours 01/18/15 Discontinued Levofloxacin (Levaquin) 750 Mg Tablet, 1 [...] Onset Date Status Hx Substance Use No 10/23/2016 5:03am Not Applicable Not Applicable Hx Alcohol Use N occasional 10/23/2016 5:03am Not Applicable Not Applicable Has the pt used tobacco in the last 12 months No 10/11/2015 8:55am Not Applicable Not Applicable Tobacco Usage smoke 01/20/2015 1:41pm Not Applicable Not Applicable Query Response Start Date Stop Date Smoking Status Current every day smoker Hospital Discharge Instructions No hospital discharge instructions. Plan of Care Discharge Date 10/23/16 5:52am Disposition 01 DISCHARGED HOME, SELF-CARE Condition at Discharge Improved Instructions/Education Provided Tendinitis (ED) Prescriptions See Medication Section Referrals HEMA CHURCH DO Address: [address] [place] [phone] Note: ALIN WEISS MD Address: [address] [place] [phone] Additional Instructions/Education Take ibuprofen 800 mg 3 times daily in addition to your routine pain medications Ice the affected area, keep it elevated as much as possible, but maintaining her normal walking and activities Call Dr. Church's office recheck sometime in the next 2-7 days If you're unable to be seen by Dr. Church, call Dr. Alin Weiss office for sports medicine/orthopedic consultation Care Plan and Goals Physician Care Plan Problem: Peroneal tendinitis Goal: Follow up with primary care provider Instructions: Take medications and follow care plan as discussed/written Take ibuprofen 800 mg 3 times daily in addition to your routine pain medications Ice the affected area, keep it elevated as much as possible, but maintaining her normal walking and activities Call Dr. Church's office recheck sometime in the next 2-7 days If you're unable to be seen by Dr. Church, call Dr. Alin Weiss office for sports medicine/orthopedic consultation Functional Status No functional status results. Allergies, [...] Diptheria, Pertussis NO OPEN AREAS 01/20/15 9:52am DTaP Vaccine History 202 10/23/16 5:03am Influenza Vaccine Hx NOT REC'D 10/23/16 5:41am Vital Signs Acute Vital Signs Vital Response Date/Time Temperature (Fahrenheit) 97.6 deg F (96.8 - 99.1) 10/23/2016 4:55am Temperature (Calculated Celsius) 36.95065 degrees C (36.0 - 37.3) 10/23/2016 4:55am Pulse Rate (adult) 75 bpm (60 - 100) 10/23/2016 5:52am Respiratory Rate 16 breaths/min (10 - 20) 10/23/2016 5:52am O2 Sat by Pulse Oximetry 92 % (90 - 100) 10/23/2016 5:52am Blood Pressure 122/56 mm Hg 10/23/2016 5:52am Height (Feet) 6 feet 10/23/2016 4:55am Height (Inches) 2.00 inches 10/23/2016 4:55am Weight (Kilograms) 122.000 kg 10/23/2016 4:55am Body Mass Index (BMI) 34.0 10/23/2016 4:55am Results No known relevant diagnostic tests, laboratory data and/or discharge summary. Procedures No known history of procedures. Encounters Encounter Location Arrival/Admit Date Discharge/Depart Date Attending Provider Departed Emergency Room [facility] 10/23/16 4:49am 10/23/16 5: 52am HEMA RIVER MD Recent Diagnosis
--- NOTE | 2016-10-23 18:02 | NUR ---
PROVIDER DR RIVER AT BEDSIDE
--- NOTE | 2016-10-23 18:10 | ERPDOC ---
Departure Disposition Decision Date: October 23, 2016 Disposition Decision Time: 18:11 Disposition: 01 DISCHARGED HOME, SELF-CARE Impression Impression Impression: Primary Impression: Peroneal tendinitis, right leg Severity: Moderate Condition: Improved Seen By: Physician only Referrals: HEMA CHURCH DO (Family) ALIN WEISS MD Patient Instructions: Tendinitis (ED) Problems/Meds/Labs Reviewed?: Yes Medications reviewed and manag: Yes Additional Instructions: Take ibuprofen 800 mg 3 times daily for baseline pain control Usual prescription pain medications as needed Ice and elevate the affected area Call Dr. Weiss's office first thing in the morning to make an appointment for follow-up Follow up care ordered?: Yes Mental Status: Alert, Oriented HPI - Lower Extremity General Chief Complaint: Lower Extremity Pain Stated Complaint: RED PAINFUL AREA ON LEG Time Seen by Provider: 18:00 Source: patient, family Exam Limitations: no limitations HPI - Lower Extremity Initial Comments Presents with the exact same symptoms that he was seen for in the ER 12 hours ago. Pain along the right posterior lateral stool calf and ankle. No specific injury. Patient was seen by this provider Lore hours ago for the identical symptoms. He was given a shot of dexamethasone, Toradol, and Dilaudid for pain at the time, referred back to his primary care physician as well as given a referral to Dr. Alin Weiss sports bookmaker. Patient apparently was unable to get an appointment today with his primary doctor, and rather than Dr. Weiss office who he was referred to, patient went to immediate care clinic in an effort to gain some relief from the pain. Patient was told that they could do no testing and was told that he might have a blood clot in his calf and to come back to the ER. Apparently was unknown that the patient was seen 13 hours ago with identical symptoms for the exact same complaint. Patient was able to see Dr. Joiner today, his friction paint machine tender, did get refills of his pain medication, and in fact was increased from [place] 7.5's Sanford tendons in an effort to do with the pain. Patient states that he just filled the prescription, and then came straight the pharmacy here. Occurred At: home Severity: moderate, severe Quality: burning, sharpness, stabbing Allergies: Coded Allergies: No Known Drug Allergies (Verified Allergy, Unknown, 10/23/16) Past History Patient Surgical History Lap Azul T/A Multiple ortho procedures due to trauma Past Medical History Hx Echocardiogram: No Respiratory: other, pneumonia GI: GERD Musculoskeletal: back pain, other Infectious: other Psychological: OD, anxiety, bipolar, depression, other Surgical History General: gallbladder, tonsils Joint: other Family History Family PMH: FOUND: cancer, hypertension Vaccines Hx Influenza Vaccination: No Hx Pneumococcal Vaccination: No Social History Does patient use chewing tobac: No Second Hand Exposure: Yes Substance Use Type: does not use Alcohol Intake: occasionally Sexuality: female partner Review of Systems Constitutional Constitutional: DENIES: appetite decrease, appetite increase, chills, dizziness , fever, weakness ENMT Ears: DENIES: pain Hearing: DENIES: hearing loss, tinnitus Balance: DENIES: vertigo Mouth/Throat: DENIES: change in swallowing, change in voice, hoarsness, painful swallowing, sore throat Cardiovascular Cardiac: DENIES: chest pain, dyspnea on exertion Rhythm/Rate: DENIES: irregular beat, palpitations, tachycardia Vascular: DENIES: pedal edema Pulmonary Respiratory: DENIES: cough, dyspnea, pleuritic chest pain GI Upper Abdomen: DENIES: dysphagia, heartburn/indigestion, nausea, pain, vomiting Lower Abdomen: DENIES: blood in stool, constipation, diarrhea, pain General: DENIES: burning, dysuria, frequency, pain, urgency Musculoskeletal General: DENIES: cramps, joint pain, joint swelling, pain, weakness Integumentary Skin: DENIES: rash, sores Neurological General: DENIES: headache, numbness, tingling, vertigo, weakness Physical Exam General General Nourishment: well nourished, well developed, appears stated age, no acute distress General Body Habitus: well groomed Vitals and Pain First Documented Vital Signs Date Time Temp Pulse Resp B/P Pulse Ox O2 Delivery O2 Flow Rate FiO2 10/23/16 17:55 98.7 90 18 119/71 91 Room Air Weight: Kilograms: 122.000 Height (feet): 6 Height (inches): 2.00 Triage Pain Scale: RN VS reviewed by Provider: Yes Normal Exams: Head: Normocephalic w/o trauma Eyes: Pupils are PERRLA w/ EOMI, No scleral icterus, irritation, or foreign bodies noted ENMT: No facial trauma, nasal exudates, pharyngeal erythema, or exudates are noted Neck: Full range of motion, without adenopathy, JVD, bruits or thyromegaly Chest/Resp: Clear all cerda, with good airflow, and symmetry bilaterally CV: Regular rate and rhythm, without murmur or gallop, Pulses 2+ all extremities, capillary refill, <2 seconds all ext., no pedal edema noted Abdomen: Bowel sounds positive, soft, non-tender, non-distended, no hepatosplenomegaly, masses or bruits noted Lymphatic: No lymphadenopathy, or lymphedema noted Integumentary: No rashes, hives, or bruising noted, hair and nails, without abnormality Neurologic: Patient is alert, and oriented, cranial nerves, motor/sensory/ cerebellar, exams w/o gross deficits, to observation Psychiatric: Patient exhibits, appropriate attention, emotion and affect Musculoskeletal (brief) Musculoskeletal Brief: FOUND: tenderness (current tenderness over the erroneous brevis on the right lateral aspect of the ankle, with tenderness along the peroneal tendon. Patient has no redness, no swelling, no deformity, no calf tenderness, no tenderness along any significant venous or arterial structures, and is neurovascularly intact with good pulses and good capillary refill.), NOT FOUND: spasm Progress Progress Progress Patient is instructed to use his home medications which should be more than adequate for his pain. He is also instructed to follow-up with Dr. Alin Weiss, and call her office first thing in the morning to set an appointment of next week. Patient was cautioned that this is an inflammatory tendinitis, expect the pain to last for days to weeks before it finally does improve. Patient was again encouraged to ice and elevate the limb for comfort, and follow -up with the appropriate referrals. HEMA RIVER MD October 23, 2016 18:10
[2016-10-23 18:17] VITALS: BP 119/71; PULSE 90; RESP 18; TEMP 98.7; O2SAT 91
--- OUTSIDE RECORDS SUMMARY | 2016-10-23 18:23 | XMS REPORT ---
Author Author [facility] Organization Unknown Address Unknown Phone Unavailable Care Team Providers Care Radio Survey Worker Name Role Phone UNASSIGNED DOCTOR , DOCTOR PP [phone] Reason For Visit Reason for Visit from [...] H (65-99 MG/DL) *GFR EST NON AFR [place] 87 ML/MIN (Reference Range: not available) *GFR [...] * Address # [address] : [place] [address] [phone] Follow-up Appointments from 10/02/2016 9:30 AM:* #1 Office appointment: : Davida Shell * #1 Date/Time : 10/06/2016 10:00 AM * Address # [address] : [place] [address] [phone] Follow-up Appointments from 10/02/2016 9:02 AM:* #1 Office appointment: : Davida Shell * #1 Date/Time : 10/06/2016 10:00 AM * Address # [address] : [place] [phone] Procedures No relevant procedures performed. Immunizations No [...] Allergies, Adverse Reactions, Alerts This section is account executive sales representative of the current allergy information, [...] the responsibility of the patient or patient account executive sales representative to confirm the list of [...] a day for pain Stopped medications* HYDROcodone-acetaminophen ([place]) 7.5 mg-325 mg Tablet Directions: 1 tablet oral three times a day PRN pain * benztropine 1 mg Tablet Directions: 1 tablet oral twice a day
--- OUTSIDE RECORDS SUMMARY | 2016-10-23 18:24 | XMS REPORT | Continuity of Care Document ---
Author Author [facility] Organization [facility] Address Unknown Phone Unavailable Care Team Providers Care Lacquer Shader Name Role Phone GASTON GARCIA MD Primary Care Physician [phone] Insurance Providers Guarantor Caio Ma Address [address] [place] [address] Email DENIED/ 16 Payer [facility] Policy Number [id number] Subscriber's Name Caio Ma Relationship 18 Self Effective Date 16 Expiration Date 16 Advance Directives Directive Response Recorded Date/Time Advanced Directives Type None 10/23/16 5:55pm Chief Complaint and Reason for Visit Chief Complaint Lower Extremity Pain Reason for Visit [id number] Problems Active Problems Medical Problem Onset Date [...] Unknown Acute Obesity (BMI 30-39.9) Unknown Chronic Peroneal tendinitis, right leg Unknown Acute Pneumonitis, aspiration Unknown Acute Polypharmacy Unknown Chronic [...] Medications Medication Directions Ordered Status Acetaminophen/Hydrocodone Bitart ([place] 5-325 Tablet) 1 Each Tablet, 1 Tab [...] Date Status Hx Substance Use No 10/23/2016 6:02pm Not Applicable Not Applicable Hx Alcohol Use N occasional 10/23/2016 6:02pm Not Applicable Not Applicable Has the pt used tobacco in the last 12 months No 10/11/2015 8:55am Not Applicable Not Applicable Tobacco Usage smoke 01/20/2015 1:41pm Not Applicable Not Applicable Query Response Start Date Stop Date Smoking Status Current every day smoker Hospital Discharge Instructions No hospital discharge instructions. Plan of Care Discharge Date 10/23/16 6:17pm Disposition 01 DISCHARGED HOME, SELF-CARE Condition at Discharge Improved Instructions/Education Provided Tendinitis (ED) Prescriptions See Medication Section Referrals HEMA CHURCH DO Address: [address] [place] [phone] Note: ALIN WEISS MD Address: [address] [place] [phone] Additional Instructions/Education Take ibuprofen 800 mg 3 times daily for baseline pain control Usual prescription pain medications as needed Ice and elevate the affected area Call Dr. Weiss's office first thing in the morning to make an appointment for follow-up Care Plan and Goals Physician Care Plan Problem: Right peroneal tendinitis Goal: Follow up with primary care provider Instructions: Take medications and follow care plan as discussed/written Take ibuprofen 800 mg 3 times daily for baseline pain control Usual prescription pain medications as needed Ice and elevate the affected area Call Dr. Weiss's office first thing in the morning to make an appointment for follow-up Functional Status No functional status results. Allergies, Adverse Reactions, Alerts Allergen Type Severity Reaction Status Last Updated No Known Drug Allergies Allergy Unknown Active 10/23/16 Immunizations Query Response on File Recorded Date/Time Hx Influenza Vaccination No 10/11/15 8:55am Hx Pneumococcal Vaccination No 10/11/15 8:55am Hx Tetanus, Diptheria, Pertussis NO OPEN AREAS 01/20/15 9:52am Hx Influenza Vaccination No 10/11/15 8:55am Hx Tetanus, Diptheria, Pertussis NO OPEN AREAS 01/20/15 9:52am DTaP Vaccine History 202 10/23/16 6:02pm Influenza Vaccine Hx NOT REC'D 10/23/16 6:02pm Tdap Vaccine Hx UNKNOWN 10/23/16 5:58pm Vital Signs Acute Vital Signs Vital Response Date/Time Temperature (Fahrenheit) 98.7 deg F (96.8 - 99.1) 10/23/2016 6:17pm Temperature (Calculated Celsius) 37.43396 degrees C (36.0 - 37.3) 10/23/2016 6:17pm Pulse Rate (adult) 90 bpm (60 - 100) 10/23/2016 6:17pm Respiratory Rate 18 breaths/min (10 - 20) 10/23/2016 6:17pm O2 Sat by Pulse Oximetry 91 % (90 - 100) 10/23/2016 6:17pm Blood Pressure 119/71 mm Hg 10/23/2016 6:17pm Height (Feet) 6 feet 10/23/2016 5:55pm Height (Inches) 2.00 inches 10/23/2016 5:55pm Weight (Kilograms) 122.000 kg 10/23/2016 5:55pm Body Mass Index (BMI) 34.0 10/23/2016 5:55pm Results No known relevant diagnostic tests, laboratory data and/or discharge summary. Procedures No known history of procedures. Encounters Encounter Location Arrival/Admit Date Discharge/Depart Date Attending Provider Departed Emergency Room [facility] 10/23/16 5:53pm 10/23/16 6: 17pm HEMA RIVER MD Departed Emergency Room [facility] 10/23/16 4:49am 10/23/16 5: 52am HEMA RIVER MD Recent Diagnosis
--- OUTSIDE RECORDS SUMMARY | 2016-10-23 18:24 | XMS REPORT | Continuity of Care Document ---
[...] Procedures Code [place] [address] Bronchoscopy, rigid or flexible, including fluoroscopic guidance, when perf 05/29/2015 69376 OFFICE/OUTPATIENT VISIT SAMRA WARD 05/13/2016 Results Encounters ACCT No. Visit Date/Time Discharge Status Pt. Type Provider Facility Loc./Unit Complaint [id number] 03/28/2015 10:28:00 03/28/2015 23 :59:59 CLS Outpatient
--- OUTSIDE RECORDS SUMMARY | 2016-10-23 18:25 | XMS REPORT ---
Author Author GENERATED, SYSTEM Organization Unknown Address Unknown Phone Unavailable Care Team Providers Care Supply Chain Buyer Name Role Phone UNASSIGNED DOCTOR , DOCTOR PP [phone] Reason For Visit Reason for Visit from [...] H (65-99 MG/DL) *GFR EST NON AFR FILIPINO 87 ML/MIN (Reference Range: not available) *GFR [...] * Address [address] : [address] [phone] Follow-up Appointments from 10/02/2016 9:30 AM:* #1 Office appointment: : Davida Shell * #1 Date/Time : 10/06/2016 10:00 AM * Address [address] : [address] [phone] Follow-up Appointments from 10/02/2016 9:02 AM:* #1 Office appointment: : Davida Shell * #1 Date/Time : 10/06/2016 10:00 AM * Address # [address] : [address] [phone] Procedures No relevant procedures performed. Immunizations No [...] Allergies, Adverse Reactions, Alerts This section is area representative of the current allergy information, at [...] the responsibility of the patient or patient area representative to confirm the list of medications [...] a day for pain Stopped medications* HYDROcodone-acetaminophen ([place]) 7.5 mg-325 mg Tablet Directions: 1 tablet oral three times a day PRN pain * benztropine 1 mg Tablet Directions: 1 tablet oral twice a day
== END 2016-10-23 18:17 | disposition home or self-care (01) ==
LOC: ED 17:53
DX: M76.71 Peroneal tendinitis, right leg (principal)